=== PATIENT | male | born 1965 | race Caucasian/White ===

== ENCOUNTER 2017-03-05 02:45 | Emergency (ER) | payer OTHER ==
--- NOTE | 2017-03-05 03:50 | ED ORDER SUMMARY ---
..... Patient: CARLOS WADE OrderSheet [facility] VisitID: [id number] [address] [place] [address] 51y, M Registration Date/Time: 03/05/2017 ORDER SHEET Weight: 117.9 kg (stated) Allergies: No Known Drug Allergy GENERAL ORDERS: Shoulder 2V or more Right Urgent (03:20 03/05/2017 Mily Melchor) (3:35 Logan R.N.) Ice (03:20 03/05/2017 Mily Melchor) (3:21 Logan R.N.) MEDICATION ORDERS: Morphine IM 10 mg (HIGH ALERT MEDICATION, NOW) (03:20 03/05/2017 Mily Melchor) (Ack 3:21 CBthor R.N.) (3:28 Logan R.N.) IV FLUIDS: ORDER SHEET NOTES: [Electronically signed by Haydee Escobar R.N. (04:04 03/05/2017)] [Electronically signed by Brennan Lopez Dr. (04:12 03/05/2017)] [Electronically locked/signed by Haydee Escobar R.N. (04:04 03/05/2017)]
--- NOTE | 2017-03-05 03:50 | ED NURSING NOTES ---
Clinical Report - Nurses [facility] [address] [place] [address] 03/05/2017 2:48 Patient: CARLOS WADE TRIAGE Triage time 02:51. Acuity: LEVEL 4. Chief Complaint: RIGHT UPPER EXTREMITY PAIN. --02:58 Haydee Escobar R.N. 02:51 03/05/17. BP: 129/76 taken on the left arm, while lying. HR: 75 (regular and normal rate). RR: 18 (regular and unlabored). O2 saturation: 96% on room air. Temp: 98.5 F (oral). Pain level now: 04/30. --02:58 Haydee Escobar R.N. Weight: 117.9 kg stated. Height/Length: 70 inches Per Patient. BMI: 37.3. --02:53 Haydee Escobar R.N. Medications OxyCODONE HCl Oral (Tablet 15 mg) 1 tablet, as needed. --02:55 Haydee Escobar R.N. Allergies No Known Drug Allergy. --02:54 Haydee Escobar R.N. History Arrived by private vehicle. Historian: patient. Accompanied by family. Primary physician (keyshawn). No injury occurred. This occurred (about 1 years). Provoking / relieving factors: worsened by movement and lying down; relieved by nothing. ( pt states right shoulder pain for 1 year, radiating deep inside, gotten worse over last few days. Denies injury). Treatment LIFE ADVISOR: Applied ice. Took ibuprofen. (muscle rub). PAST MEDICAL HX: Tetanus status: up-to-date. SOCIAL HX: Never smoker. No alcohol use or drug use. ABUSE ASSESSMENT: No report of abuse. SELF HARM ASSESSMENT: A self harm assessment was performed. The patient answered "no" to the question "Have you recently felt down, depressed, or hopeless?", "Have you noticed less interest or pleasure in doing things?", "Do you have thoughts of harming or killing yourself?", "Are you here because you tried to hurt yourself?", "Have you ever tried to hurt yourself before today?", "Have you recently had thoughts about harming or killing others?" and "Do you have any dangerous items in your possession?". FALL RISK ASSESSMENT: Fall risk assessment completed. No fall risk identified. NUTRITIONAL RISK ASSESSMENT: The nutritional risk assessment revealed no deficiencies. FUNCTIONAL ASSESSMENT: Functional assessment: no impairments noted. LEARNING NEEDS ASSESSMENT: The learning needs assessment revealed no barriers. SKIN INTEGRITY ASSESSMENT: Skin integrity risk assessment completed. No skin integrity risk identified. --02:58 Haydee Escobar R.N. PROBLEMS: Degenerative disc disease. Osteoporosis. --02:57 Haydee Escobar R.N. ADDITIONAL SURGERIES: Brain surgery. Facial reconstruction. Laminectomy. Rotator Cuff Surgery. --02:57 Haydee Escobar R.N. Interventions ID band on patient. --02:58 Haydee Escobar R.N. PHYSICAL ASSESSMENT Ambulatory to room. GENERAL / NEURO / PSYCH: Alert. Appears in no acute distress. Appears in pain. EXTREMITIES: Neuro-vascular status intact to the extremity. No upper extremity edema. Right shoulder: tenderness. Limited ROM due to pain (diminished abduction, adduction, flexion, extension and external and internal rotation). SKIN: Skin intact. Skin is warm and dry. --02:59 Haydee Escobar R.N. NURSING PROGRESS NOTES Two patient identifiers checked. Call light placed in reach. Side rails up x 1. Bed placed in lowest position. Brakes of bed on. --02:59 Haydee Escobar R.N. Patient ready for evaluation- chart flagged. --02:59 Haydee Escobar R.N. 03:25 03/05/2017 Morphine (Morphine Sulfate (PF)) IM 10 mg given. Given in the right deltoid. Allergies verified, confirmed 5 rights and sedative warning given to the patient. --03:28 Haydee Escobar R.N. DISPOSITION / DISCHARGE Condition at departure: improved and stable. No learning barriers present. Discharge instructions provided and reviewed with the patient. Patient and polysom tech verbalized understanding. Written instructions provided in Bengali. No medication instructions. The patient was discharged home and accompanied by polysom tech. He left the Emergency Department ambulatory and via private vehicle. [place] driving. --04:04 Haydee Escobar R.N. 03:55 03/05/17. BP: 150/91. HR: 84. RR: 18. O2 saturation: 100% on room air. Temp: deferred. Pain level now: 01/29. --04:04 Haydee Escobar R.N. Departure time: 0355. --04:04 Haydee Escobar R.N. Locked/Released at 03/05/2017 4:04 by Haydee Escobar R.N.
--- NOTE | 2017-03-05 03:50 | ED NURSING NOTES ---
Clinical Report - Nurses [facility] [address] [place] [address] 03/05/2017 2:48 Patient: CARLOS WADE TRIAGE Triage time 02:51. Acuity: LEVEL 4. Chief Complaint: RIGHT UPPER EXTREMITY PAIN. --02:58 Haydee Escobar R.N. 02:51 03/05/17. BP: 129/76 taken on the left arm, while lying. HR: 75 (regular and normal rate). RR: 18 (regular and unlabored). O2 saturation: 96% on room air. Temp: 98.5 F (oral). Pain level now: 04/30. --02:58 Haydee Escobar R.N. Weight: 117.9 kg stated. Height/Length: 70 inches Per Patient. BMI: 37.3. --02:53 Haydee Escobar R.N. Medications OxyCODONE HCl Oral (Tablet 15 mg) 1 tablet, as needed. --02:55 Haydee Escobar R.N. Allergies No Known Drug Allergy. --02:54 Haydee Escobar R.N. History Arrived by private vehicle. Historian: patient. Accompanied by family. Primary physician (keyshawn). No injury occurred. This occurred (about 1 years). Provoking / relieving factors: worsened by movement and lying down; relieved by nothing. ( pt states right shoulder pain for 1 year, radiating deep inside, gotten worse over last few days. Denies injury). Treatment DIRECTOR SEMICONDUCTOR: Applied ice. Took ibuprofen. (muscle rub). PAST MEDICAL HX: Tetanus status: up-to-date. SOCIAL HX: Never smoker. No alcohol use or drug use. ABUSE ASSESSMENT: No report of abuse. SELF HARM ASSESSMENT: A self harm assessment was performed. The patient answered "no" to the question "Have you recently felt down, depressed, or hopeless?", "Have you noticed less interest or pleasure in doing things?", "Do you have thoughts of harming or killing yourself?", "Are you here because you tried to hurt yourself?", "Have you ever tried to hurt yourself before today?", "Have you recently had thoughts about harming or killing others?" and "Do you have any dangerous items in your possession?". FALL RISK ASSESSMENT: Fall risk assessment completed. No fall risk identified. NUTRITIONAL RISK ASSESSMENT: The nutritional risk assessment revealed no deficiencies. FUNCTIONAL ASSESSMENT: Functional assessment: no impairments noted. LEARNING NEEDS ASSESSMENT: The learning needs assessment revealed no barriers. SKIN INTEGRITY ASSESSMENT: Skin integrity risk assessment completed. No skin integrity risk identified. --02:58 Haydee Escobar R.N. PROBLEMS: Degenerative disc disease. Osteoporosis. --02:57 Haydee Escobar R.N. ADDITIONAL SURGERIES: Brain surgery. Facial reconstruction. Laminectomy. Rotator Cuff Surgery. --02:57 Haydee Escobar R.N. Interventions ID band on patient. --02:58 Haydee Escobar R.N. PHYSICAL ASSESSMENT Ambulatory to room. GENERAL / NEURO / PSYCH: Alert. Appears in no acute distress. Appears in pain. EXTREMITIES: Neuro-vascular status intact to the extremity. No upper extremity edema. Right shoulder: tenderness. Limited ROM due to pain (diminished abduction, adduction, flexion, extension and external and internal rotation). SKIN: Skin intact. Skin is warm and dry. --02:59 Haydee Escobar R.N. NURSING PROGRESS NOTES Two patient identifiers checked. Call light placed in reach. Side rails up x 1. Bed placed in lowest position. Brakes of bed on. --02:59 Haydee Escobar R.N. Patient ready for evaluation- chart flagged. --02:59 Haydee Escobar R.N. 03:25 03/05/2017 Morphine (Morphine Sulfate (PF)) IM 10 mg given. Given in the right deltoid. Allergies verified, confirmed 5 rights and sedative warning given to the patient. --03:28 Haydee Escobar R.N. DISPOSITION / DISCHARGE Condition at departure: improved and stable. No learning barriers present. Discharge instructions provided and reviewed with the patient. Patient and public health internship verbalized understanding. Written instructions provided in Sami. No medication instructions. The patient was discharged home and accompanied by public health internship. He left the Emergency Department ambulatory and via private vehicle. Yarn Tw[employer] driving. --04:04 Haydee Escobar R.N. 03:55 03/05/17. BP: 150/91. HR: 84. RR: 18. O2 saturation: 100% on room air. Temp: deferred. Pain level now: 01/29. --04:04 Haydee Escobar R.N. Departure time: 0355. --04:04 Haydee Escobar R.N. Locked/Released at 03/05/2017 4:04 by Haydee Escobar R.N.
--- NOTE | 2017-03-05 03:50 | ED ORDER SUMMARY ---
..... Patient: CARLOS WADE OrderSheet [facility] VisitID: [id number] [address] [place] [address] 51y, M Registration Date/Time: 03/05/2017 ORDER SHEET Weight: 117.9 kg (stated) Allergies: No Known Drug Allergy GENERAL ORDERS: Shoulder 2V or more Right Urgent (03:20 03/05/2017 Mily Melchor) (3:35 Logan R.N.) Ice (03:20 03/05/2017 Mily Melchor) (3:21 Logan R.N.) MEDICATION ORDERS: Morphine IM 10 mg (HIGH ALERT MEDICATION, NOW) (03:20 03/05/2017 Mily Melchor) (Ack 3:21 CBthor R.N.) (3:28 Logan R.N.) IV FLUIDS: ORDER SHEET NOTES: [Electronically signed by Haydee Escobar R.N. (04:04 03/05/2017)] [Electronically signed by Brennan Lopez Dr. (04:12 03/05/2017)] [Electronically locked/signed by Haydee Escobar R.N. (04:04 03/05/2017)]
--- NOTE | 2017-03-05 04:13 | ED CLINICAL REPORT ---
Clinical Report - Physicians/Mid Levels [facility] [address] [place] [address] 03/05/2017 2:48 Patient: CARLOS WADE Time Seen: 0309. Arrived- By private vehicle. Historian- patient. HISTORY OF PRESENT ILLNESS Chief Complaint: Injury to right shoulder. The injury happened past year. Occurred at home. ( unsure how he injured it). Patient is experiencing moderate pain. Patient denies injury to the head or neck. No other injury. ( states he had work done on the other shoulder. reports he can see this doctor in the future.). REVIEW OF SYSTEMS No swelling, tingling, numbness, weakness or suspected foreign body. No skin laceration. All systems otherwise negative, except as recorded above. PAST HISTORY See nurses notes. Medications: OxyCODONE HCl Oral (Tablet 15 mg) 1 tablet, as needed. Allergies: No Known Drug Allergy. SOCIAL HISTORY Never smoker. No alcohol use or drug use. No recent travel. Is a local resident. ADDITIONAL NOTES The nursing notes have been reviewed. PHYSICAL EXAM Vital Signs: 03/05/2017 02:51 BP: 129/76. HR: 75. RR: 18. O2 saturation: 96%. Temp: 98.5 F. Pain level now: 7/10. Blood pressure normal. Oxygen saturation normal. Appearance: Alert. Oriented X3. No acute distress. Head: Head atraumatic. Eyes: Pupils equal, round and reactive to light. Eyes normal inspection. ENT: Ears normal. Nose normal. Pharynx normal. Neck: Normal inspection. Neck supple. C-spine non-tender. (well healed remote midline surgical scar.). CVS: Normal heart rate and rhythm. Heart sounds normal. Pulses normal. Respiratory: No respiratory distress. Breath sounds normal. Chest nontender. Abdomen: No visible injury. Soft and nontender. Bowel sounds normal. Skin: Skin intact. Skin warm and dry. Normal skin color. Normal skin turgor. Extremities: Normal external inspection. Mild soft-tissue tenderness present over the right anterior shoulder. No shoulder deformity. (no dhruv abnormalities. no specific movement worse in regards to pain.). Extremities otherwise negative. Neuro, Vascular and Tendons: Sensation intact. Motor intact. Vascular status intact. Tendon function intact. Neuro: Oriented X 3. No motor deficit. No sensory deficit. LABS, X-RAYS, AND EKG Rt Shoulder X-ray: No fracture. Normal alignment. Soft tissues normal. Joint spaces normal. No air in the soft tissue or foreign body. (dystrophic calcifications. no acute findings. otherwise negative right shoulder.). Technique: good. The X-rays were independently viewed by me and interpreted contemporaneously by me. Prior films were not available for comparison. PROGRESS AND PROCEDURES Course of Care: the patient is a pleasant 51-year-old male presenting for evaluation of right-sided shoulder pain. This is been going on for 1 year. No signs of septic joint. No signs of compartment syndrome. Patient is otherwise neurovascular intact. Patient will be evaluated. patient will be evaluated for any acute osseous abnormalities with radiographs of the right shoulder. Pain medication provided. Workup does not show any acute osseous abnormalities. Patient's repeat examination is improved. Patient states that his pain is much better controlled. I discussed the patient workup here in the emergency department including diagnosis, home care, follow-up, and return precautions. All questions have been answered. The patient expressed understanding of these instructions and was agreeable to them. Disposition: Discharged. Condition: good. CLINICAL IMPRESSION 03/05/2017 02:51 BP: 129/76. HR: 75. RR: 18. O2 saturation: 96%. Temp: 98.5 F. Pain level now: 7/10. Blood pressure normal. Oxygen saturation normal. Acute nontraumatic pain in the left upper extremity (shoulder)(acute). INSTRUCTIONS Warnings: GENERAL WARNINGS: Return or contact your physician immediately if your condition worsens or changes unexpectedly, if not improving as expected, or if other problems arise. Specifically return if pain, vomiting, bleeding, breathing difficulty or fever. Your Current Medications: CONTINUE TAKING THE FOLLOWING MEDICATIONS: OxyCODONE HCl Oral : Tablet 15 mg, 1 tablet, prn. Follow-up: Return to the emergency department as needed. Follow up with your doctor in three days. Reason for referral: recheck today's concerns. Summary of care provided to patient via paper. Screening today revealed the patient's blood pressure to be in the normal range. The patient should follow up with a primary care provider for blood pressure management. Understanding of the discharge instructions verbalized by patient. (Electronically signed by Brennan Lopez Dr. 03/05/2017 4:12)
--- NOTE | 2017-03-05 04:13 | ED DISCHARGE INSTRUCTIONS ---
Patient: CARLOS WADE General Instructions [facility] VisitID: [id number] [address] [place] [address] 51y, M Registration Date/Time: 03/05/2017 03/05/2017 02:51 BP: 129/76. HR: 75. RR: 18. O2 saturation: 96%. Temp: 98.5 F. Pain level now: 7/10. Blood pressure normal. Oxygen saturation normal. Acute nontraumatic pain in the left upper extremity (shoulder)(acute). INSTRUCTIONS Warnings: GENERAL WARNINGS: Return or contact your physician immediately if your condition worsens or changes unexpectedly, if not improving as expected, or if other problems arise. Specifically return if pain, vomiting, bleeding, breathing difficulty or fever. Your Current Medications: CONTINUE TAKING THE FOLLOWING MEDICATIONS: OxyCODONE HCl Oral : Tablet 15 mg, 1 tablet, prn. Follow-up: Return to the emergency department as needed. Follow up with your doctor in three days. Reason for referral: recheck today's concerns. Summary of care provided to patient via paper. Screening today revealed the patient's blood pressure to be in the normal range. The patient should follow up with a primary care provider for blood pressure management. Understanding of the discharge instructions verbalized by patient. ADDITIONAL INFORMATION Pain, Uncertain Cause [Acute] Pain is the bodys way of calling attention to a problem. Pain can be caused by many conditions - some minor, some serious. In your case, we were not able to find the exact cause for your pain. However, at this time there is no sign of any serious or life-threatening illness causing your pain. Sometimes more tests will be needed to determine the cause. Other times, just allowing more time to pass will either make it clear what the problem is, or the pain will go away by itself. Home Care: You may use acetaminophen (Tylenol) or ibuprofen (Motrin, Advil) to control pain, unless another medicine was prescribed. [NOTE: If you have chronic liver or kidney disease or ever had a stomach ulcer or GI bleeding, talk with your doctor before using these medicines.] Follow Up with your doctor or as advised by our staff. Get Prompt Medical Attention if any of the following occur: Changes in the pattern of your pain Appearance of new symptoms Fever of 100.4F (38C) or higher, or as directed by your healthcare provider You have been given the following additional information: Pain, Uncertain Cause (Acute) (Electronically signed by Brennan Lopez Dr. 03/05/2017 4:12)
--- NOTE | 2017-03-05 04:13 | ED MAR SUMMARY ---
..... Medication Administration Record [facility] [address] [place] [address] Patient: CARLOS WADE Visit ID: [id number] 51y, M Weight: 117.9 kg Height/Length: 70 in BMI: 37.3 ALLERGIES: No Known Drug Allergy Given 03:25 03/05/2017 Haydee Escobar R.N. Medication Administered: MORPHINE [IM] (MORPHINE SULFATE (PF)), Dose: 10 mg IM. Medication Ordered: Morphine IM 10 mg (HIGH ALERT MEDICATION, NOW).
--- NOTE | 2017-03-05 04:13 | ED MED RECONCILIATION SUMMARY ---
Patient: CARLOS WADE Medication Reconciliation Report [facility] VisitID: [id number] [address] [place] [address] 51y, M Registration Date/Time: 03/05/2017 Weight: 117.9 kg Height/Length: 70 in. BMI: 37.3 ALLERGIES: No Known Drug Allergy The patient's Home Medications are listed below: CONTINUE TAKING THE FOLLOWING MEDICATIONS: OxyCODONE HCl Oral (15 mg) 1 tablet The source(s) of the original Home Medication information: Not obtained. The following Medications were given to the patient in the Emergency Department: Morphine [IM] IM 10 mg, administered: 03/05/2017 3:25:00 AM The following Medications were prescribed to the patient: None.
--- NOTE | 2017-03-05 04:13 | ED MAR SUMMARY ---
..... Medication Administration Record [facility] [address] [place] [address] Patient: CARLOS WADE Visit ID: [id number] 51y, M Weight: 117.9 kg Height/Length: 70 in BMI: 37.3 ALLERGIES: No Known Drug Allergy Given 03:25 03/05/2017 Haydee Escobar R.N. Medication Administered: MORPHINE [IM] (MORPHINE SULFATE (PF)), Dose: 10 mg IM. Medication Ordered: Morphine IM 10 mg (HIGH ALERT MEDICATION, NOW).
--- NOTE | 2017-03-05 04:13 | ED MED RECONCILIATION SUMMARY ---
Patient: CARLOS WADE Medication Reconciliation Report [facility] VisitID: [id number] [address] [place] [address] 51y, M Registration Date/Time: 03/05/2017 Weight: 117.9 kg Height/Length: 70 in. BMI: 37.3 ALLERGIES: No Known Drug Allergy The patient's Home Medications are listed below: CONTINUE TAKING THE FOLLOWING MEDICATIONS: OxyCODONE HCl Oral (15 mg) 1 tablet The source(s) of the original Home Medication information: Not obtained. The following Medications were given to the patient in the Emergency Department: Morphine [IM] IM 10 mg, administered: 03/05/2017 3:25:00 AM The following Medications were prescribed to the patient: None.
--- NOTE | 2017-03-05 05:43 | DIAGNOSTIC IMAGING REPORT ---
PROCEDURE: XR SHOULDER 2 OR MORE VW-RIGHT INDICATION: TRAUMA/INJURY TECHNIQUE: Three views. COMPARISON: None. FINDINGS: There is no fracture. Mild AC and glenohumeral joint degenerative changes with widening. This may 740 of the proximal humerus laterally suggestive of an exostosis. Extensive calcific tendinosis. IMPRESSION: 1. No acute changes 2. Widening of the AC joint suggestive of grade 1 separation 3. Mild AC and glenohumeral joint degenerative changes 4. Calcific tendonitis
== END 2017-03-05 03:55 | disposition home or self-care (01) ==
LOC: ED SRH 02:45
DX: M25.511 Pain in right shoulder (principal)

== ENCOUNTER 2017-04-14 23:08 | Emergency (ER) | payer OTHER ==
--- NOTE | 2017-04-15 01:30 | ED NURSING NOTES ---
Clinical Report - Nurses [facility] [place] [address] 04/14/2017 23:08 Patient: CARLOS WADE TRIAGE Triage time 23:18. Acuity: LEVEL 4. Chief Complaint: INJURY TO LEFT SHOULDER. INJURY TO THE LEFT ARM. 23:26. Alert. GABRIELLE COMA SCORE: [place] Coma Scale: 15- eyes open spontaneously (4); best verbal response- oriented x 4 (5); best motor response- obeys commands (6). --23:26 Ethan Wynn R.N. 23:18 04/14/17. BP: 125/82. HR: 88. RR: 16. O2 saturation: 95%. Temp: 98 F (oral). Pain level now: 810. --23:26 Ethan Wynn R.N. Weight: 117.9 kg stated. Height/Length: 70 inches Per Patient. BMI: 37.3. --23:25 Ethan Wynn R.N. Medications OxyCODONE HCl Oral (Tablet 15 mg) 1 tablet, as needed. --23:24 Ethan Wynn R.N. Medication/allergy information source: the patient. --23:26 Ethan Wynn R.N. Allergies No Known Drug Allergy. --23:24 Ethan Wynn R.N. History Arrived by private vehicle. Historian: patient. Primary physician (Jayleen). This occurred (3 days ago). Occurred at work. ( Grabbed ladder as it was sliding, having left arm, left shoulder and chest pain thinks he tore a muscle). Treatment SPRING BENDER: Took ibuprofen. PAST MEDICAL HX: Tetanus status: up-to-date. Immunizations: up-to-date. SOCIAL HX: Never smoker. No alcohol use or drug use. No infectious disease exposure. ABUSE ASSESSMENT: No report of abuse. FALL RISK ASSESSMENT: Fall risk assessment completed. No fall risk identified. NUTRITIONAL RISK ASSESSMENT: The nutritional risk assessment revealed no deficiencies. FUNCTIONAL ASSESSMENT: Functional assessment: no impairments noted. LEARNING NEEDS ASSESSMENT: The learning needs assessment revealed no barriers. SKIN INTEGRITY ASSESSMENT: Skin integrity risk assessment completed. No skin integrity risk identified. --: Ethan Wynn R.N. PROBLEMS: Degenerative disc disease. Osteoporosis. --23:24 Ethan Wynn R.N. ADDITIONAL SURGERIES: Brain surgery. Facial reconstruction. Laminectomy. Rotator Cuff Surgery. --23:24 Ethan Wynn R.N. Hip Surgery. Knee Surgery. --23:25 Ethan Wynn R.N. Interventions ID band on patient. To treatment room. --23: Ethan Wynn R.N. PHYSICAL ASSESSMENT 23:27. Ambulatory to room. Patient gowned. GENERAL / NEURO / PSYCH: Oriented X 4. Alert. EXTREMITIES: Neuro-vascular status intact to the extremity. SKIN: Skin intact. Skin is warm and dry. --: Ethan Wynn R.N. NURSING PROGRESS NOTES Two patient identifiers checked. Call light placed in reach. Bed placed in lowest position. Brakes of bed on. Patient ready for evaluation- chart flagged. --:27 Ethan Wynn R.N. 01:00 04/15/2017 Dilaudid (HYDROmorphone HCl PF) IM 2 mg given. Given in the left ventral gluteus. Allergies verified, confirmed 5 rights and sedative warning given to the patient and patient's welt rander. --01:03 Ethan Wynn R.N. 01:01 04/15/2017 Toradol (Ketorolac Tromethamine) IM 60 mg given. Given in the right ventral gluteus. Allergies verified and confirmed 5 rights. --01:04 Ethan Wynn R.N. 01:04 Portable x-ray right pinky finger. --01:04 Ethan Wynn R.N. 01:34. Sling applied to left arm by metal technician; distal pulses intact, sensation intact and motor function within normal limits. --01:43 Ethan Wynn R.N. 01:39. The patient is calm and resting quietly. GENERAL / NEURO / PSYCH: Alert. Oriented X 4. RESPIRATORY: No respiratory distress. EXTREMITIES: Neuro-vascular status intact to the extremity. SKIN: Skin is warm and dry. --01:42 Ethan Wynn R.N. DISPOSITION / DISCHARGE Departure time: 01:42. Condition at departure: improved and stable. No learning barriers present. Discharge instructions provided and reviewed with the patient. Patient verbalized understanding. Written instructions provided in Slovenian. The patient was discharged home and accompanied by welt rander. He left the Emergency Department ambulatory and via private vehicle. Machine Strap Buckler driving. --01:42 Ethan Wynn R.N. 01:38 04/15/17. BP: 146/87. HR: 72. RR: 16. O2 saturation: 98%. Pain level now: 02/28. --01:42 Ethan Wynn R.N. Locked/Released at 04/15/2017 1:43 by Ethan Wynn R.N.
--- NOTE | 2017-04-15 01:30 | ED NURSING NOTES ---
Clinical Report - Nurses [facility] [place] [address] 04/14/2017 23:08 Patient: CARLOS WADE TRIAGE Triage time 23:18. Acuity: LEVEL 4. Chief Complaint: INJURY TO LEFT SHOULDER. INJURY TO THE LEFT ARM. 23:26. Alert. GABRIELLE COMA SCORE: [place] Coma Scale: 15- eyes open spontaneously (4); best verbal response- oriented x 4 (5); best motor response- obeys commands (6). --23:26 Ethan Wynn R.N. 23:18 04/14/17. BP: 125/82. HR: 88. RR: 16. O2 saturation: 95%. Temp: 98 F (oral). Pain level now: 810. --23:26 Ethan Wynn R.N. Weight: 117.9 kg stated. Height/Length: 70 inches Per Patient. BMI: 37.3. --23:25 Ethan Wynn R.N. Medications OxyCODONE HCl Oral (Tablet 15 mg) 1 tablet, as needed. --23:24 Ethan Wynn R.N. Medication/allergy information source: the patient. --23:26 Ethan Wynn R.N. Allergies No Known Drug Allergy. --23:24 Ethan Wynn R.N. History Arrived by private vehicle. Historian: patient. Primary physician (Jayleen). This occurred (3 days ago). Occurred at work. ( Grabbed ladder as it was sliding, having left arm, left shoulder and chest pain thinks he tore a muscle). 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 PAST MEDICAL HX: Tetanus status: up-to-date. Immunizations: up-to-date. SOCIAL HX: Never smoker. No alcohol use or drug use. No infectious disease exposure. ABUSE ASSESSMENT: No report of abuse. FALL RISK ASSESSMENT: Fall risk assessment completed. No fall risk identified. NUTRITIONAL RISK ASSESSMENT: The nutritional risk assessment revealed no deficiencies. FUNCTIONAL ASSESSMENT: Functional assessment: no impairments noted. LEARNING NEEDS ASSESSMENT: The learning needs assessment revealed no barriers. SKIN INTEGRITY ASSESSMENT: Skin integrity risk assessment completed. No skin integrity risk identified. --: Ethan Wynn R.N. PROBLEMS: Degenerative disc disease. Osteoporosis. --23:24 Ethan Wynn R.N. ADDITIONAL SURGERIES: Brain surgery. Facial reconstruction. Laminectomy. Rotator Cuff Surgery. --23:24 Ethan Wynn R.N. Hip Surgery. Knee Surgery. --23:25 Ethan Wynn R.N. Interventions ID band on patient. To treatment room. --23: Ethan Wynn R.N. PHYSICAL ASSESSMENT 23:27. Ambulatory to room. Patient gowned. GENERAL / NEURO / PSYCH: Oriented X 4. Alert. EXTREMITIES: Neuro-vascular status intact to the extremity. SKIN: Skin intact. Skin is warm and dry. --: Ethan Wynn R.N. NURSING PROGRESS NOTES Two patient identifiers checked. Call light placed in reach. Bed placed in lowest position. Brakes of bed on. Patient ready for evaluation- chart flagged. --:27 Ethan Wynn R.N. 01:00 04/15/2017 Dilaudid (HYDROmorphone HCl PF) IM 2 mg given. Given in the left ventral gluteus. Allergies verified, confirmed 5 rights and sedative warning given to the patient and patient's veneer stapler. --01:03 Ethan Wynn R.N. 01:01 04/15/2017 Toradol (Ketorolac Tromethamine) IM 60 mg given. Given in the right ventral gluteus. Allergies verified and confirmed 5 rights. --01:04 Ethan Wynn R.N. 01:04 Portable x-ray right pinky finger. --01:04 Ethan Wynn R.N. 01:34. Sling applied to left arm by optoelectronic technician; distal pulses intact, sensation intact and motor function within normal limits. --01:43 Ethan Wynn R.N. 01:39. The patient is calm and resting quietly. GENERAL / NEURO / PSYCH: Alert. Oriented X 4. RESPIRATORY: No respiratory distress. EXTREMITIES: Neuro-vascular status intact to the extremity. SKIN: Skin is warm and dry. --01:42 Ethan Wynn R.N. DISPOSITION / DISCHARGE Departure time: 01:42. Condition at departure: improved and stable. No learning barriers present. Discharge instructions provided and reviewed with the patient. Patient verbalized understanding. Written instructions provided in Danish. The patient was discharged home and accompanied by veneer stapler. He left the Emergency Department ambulatory and via private vehicle. Circle Beveler driving. --01:42 Ethan Wynn R.N. 01:38 04/15/17. BP: 146/87. HR: 72. RR: 16. O2 saturation: 98%. Pain level now: 02/28. --01:42 Ethan Wynn R.N. Locked/Released at 04/15/2017 1:43 by Ethan Wynn R.N.
--- NOTE | 2017-04-15 01:30 | ED CLINICAL REPORT ---
Clinical Report - Physicians/Mid Levels [facility] [address] [place] [address] 04/14/2017 23:08 Patient: CARLOS WADE Time Seen: 00:34 Apr 15 2017. Arrived- By private vehicle. Historian- patient. CPT: ER phys charges level 4 (#136092). HISTORY OF PRESENT ILLNESS Chief Complaint: Injury to the left arm and the left shoulder and Chief Complaint- Here for pain control as he cannot sleep. Is on pain program and has been using his usual medications but with no frelief. 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 ( This occurred (3 days ago). Occurred at work. ( Grabbed ladder as it was sliding, having left arm, left shoulder and chest pain thinks he tore a muscle).). Patient is experiencing moderate pain. No other injury. REVIEW OF SYSTEMS The patient has had swelling. No tingling, numbness, weakness, suspected foreign body or skin laceration. Also hurt right small finger. Has been taking usual pain medication from pain clinic but pain is still too severe for sleep at night. All systems otherwise negative, except as recorded above. PAST HISTORY Left shoulder surgery , Dr Polo in [place]. Pectoralis and biceps tendon tears. ADDITIONAL NOTES The nursing notes have been reviewed. PHYSICAL EXAM Vital Signs: 04/14/2017 23:18 BP: 125/82. HR: 88. RR: 16. O2 saturation: 95%. Temp: 98 F. Pain level now: 8/10. Appearance: Alert. Appears to be in pain. Patient in moderate distress. Head: Head atraumatic. Eyes: Eyes normal inspection. ENT: Pharynx normal. Neck: Normal inspection. Neck supple. C-spine non-tender. CVS: Normal heart rate and rhythm. Respiratory: No respiratory distress. Chest nontender. Abdomen: No visible injury. Soft and nontender. Back: Normal inspection. No tenderness. Skin: Skin intact. Normal skin color. Extremities: Left shoulder: moderate tenderness located in the anterior aspect of the shoulder. Limited ROM due to pain. Neurovascular intact distally. (tender over the insertion of the left pectoralis and left biceps with deformity of the biceps consistent with rupture.). No joint effusion. Right little finger: moderate tenderness, mild swelling and small ecchymosis of the dorsal aspect and PIP joint; limited movement. Neurovascular intact distally. (finger gets stuck in flexed position.). No abrasion or deformity. No subungual hematoma or amputation present. Extremities otherwise negative. Neuro, Vascular and Tendons: Vascular status intact. Sensation intact. Motor intact. Neuro: Oriented X 3. No motor deficit. No sensory deficit. LABS, X-RAYS, AND EKG X-Rays: Right digit(s) negative. PROGRESS AND PROCEDURES Course of Care: Dilaudid 2 mg IM Toradol 60 mg IM Patient is stable. Symptoms much better. Patient/family counseled. Disposition: Discharged. Condition: stable and improved. CLINICAL IMPRESSION Pectoralis and biceps tear on the left. Right small finger sprain. INSTRUCTIONS Wear simple sling until better. Flakito tape fingers until better. Limit use of your left hand until released. Warnings: SEDATIVE MEDICATION: You were given sedative medication during your visit. Do not drive or operate dangerous machinery. GENERAL WARNINGS: Return or contact your physician immediately if your condition worsens or changes unexpectedly, if not improving as expected, or if other problems arise. Your Current Medications: CONTINUE TAKING THE FOLLOWING MEDICATIONS: OxyCODONE HCl Oral : Tablet 15 mg, 1 tablet, prn. Follow-up: Follow up with an orthopedic surgeon in three days. Call for the next available appointment. Understanding of the discharge instructions verbalized by patient and family. (Electronically signed by Kuldeep Ball MD 04/15/2017 10:50)
--- NOTE | 2017-04-15 01:30 | ED CLINICAL REPORT ---
Clinical Report - Physicians/Mid Levels [facility] [address] [place] [address] 04/14/2017 23:08 Patient: CARLOS WADE Time Seen: 00:34 Apr 15 2017. Arrived- By private vehicle. Historian- patient. CPT: ER phys charges level 4 (#[id number]). HISTORY OF PRESENT ILLNESS Chief Complaint: Injury to the left arm and the left shoulder and Chief Complaint- Here for pain control as he cannot sleep. Is on pain program and has been using his usual medications but with no frelief. 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 ( This occurred (3 days ago). Occurred at work. ( Grabbed ladder as it was sliding, having left arm, left shoulder and chest pain thinks he tore a muscle).). Patient is experiencing moderate pain. No other injury. REVIEW OF SYSTEMS The patient has had swelling. No tingling, numbness, weakness, suspected foreign body or skin laceration. Also hurt right small finger. Has been taking usual pain medication from pain clinic but pain is still too severe for sleep at night. All systems otherwise negative, except as recorded above. PAST HISTORY Left shoulder surgery , Dr Polo in [place]. Pectoralis and biceps tendon tears. ADDITIONAL NOTES The nursing notes have been reviewed. PHYSICAL EXAM Vital Signs: 04/14/2017 23:18 BP: 125/82. HR: 88. RR: 16. O2 saturation: 95%. Temp: 98 F. Pain level now: 8/10. Appearance: Alert. Appears to be in pain. Patient in moderate distress. Head: Head atraumatic. Eyes: Eyes normal inspection. ENT: Pharynx normal. Neck: Normal inspection. Neck supple. C-spine non-tender. CVS: Normal heart rate and rhythm. Respiratory: No respiratory distress. Chest nontender. Abdomen: No visible injury. Soft and nontender. Back: Normal inspection. No tenderness. Skin: Skin intact. Normal skin color. Extremities: Left shoulder: moderate tenderness located in the anterior aspect of the shoulder. Limited ROM due to pain. Neurovascular intact distally. (tender over the insertion of the left pectoralis and left biceps with deformity of the biceps consistent with rupture.). No joint effusion. Right little finger: moderate tenderness, mild swelling and small ecchymosis of the dorsal aspect and PIP joint; limited movement. Neurovascular intact distally. (finger gets stuck in flexed position.). No abrasion or deformity. No subungual hematoma or amputation present. Extremities otherwise negative. Neuro, Vascular and Tendons: Vascular status intact. Sensation intact. Motor intact. Neuro: Oriented X 3. No motor deficit. No sensory deficit. LABS, X-RAYS, AND EKG X-Rays: Right digit(s) negative. PROGRESS AND PROCEDURES Course of Care: Dilaudid 2 mg IM Toradol 60 mg IM Patient is stable. Symptoms much better. Patient/family counseled. Disposition: Discharged. Condition: stable and improved. CLINICAL IMPRESSION Pectoralis and biceps tear on the left. Right small finger sprain. INSTRUCTIONS Wear simple sling until better. Flakito tape fingers until better. Limit use of your left hand until released. Warnings: SEDATIVE MEDICATION: You were given sedative medication during your visit. Do not drive or operate dangerous machinery. GENERAL WARNINGS: Return or contact your physician immediately if your condition worsens or changes unexpectedly, if not improving as expected, or if other problems arise. Your Current Medications: CONTINUE TAKING THE FOLLOWING MEDICATIONS: OxyCODONE HCl Oral : Tablet 15 mg, 1 tablet, prn. Follow-up: Follow up with an orthopedic surgeon in three days. Call for the next available appointment. Understanding of the discharge instructions verbalized by patient and family. (Electronically signed by Kuldeep Ball MD 04/15/2017 10:50)
--- NOTE | 2017-04-15 01:30 | ED ORDER SUMMARY ---
..... Patient: CARLOS WADE OrderSheet [facility] VisitID: [id number] [address] [place] [address] 51y, M Registration Date/Time: 04/14/2017 ORDER SHEET Weight: 117.9 kg (stated) Allergies: No Known Drug Allergy GENERAL ORDERS: Finger Left (5) Urgent (00:54 04/15/2017 Jose Miguel PIERRE) (Cancelled: Other1:06 JQuivey R.N.) Finger Right (pinky) Urgent (01:04/15/2017 JQuivey R.N. verbal order read back to Jose Miguel PIERRE) (Ack 1:10 Jeferson SOLORZANO Multimedia Artist) (1:18 Jenniefr) Sling - arm (01:29 04/15/2017 Jose Miguel PIERRE) (Ack 1:35 JQuivey R.N.) (1:43 JQuivey R.N.) MEDICATION ORDERS: Oxycodone-APAP PO 10/650 mg (NOW) (00:50 04/15/2017 Jose Miguel PIERRE) (Cancelled: Other0:53 Jose Miguel PIERRE) Dilaudid IM 2 mg (NOW) (00:53 04/15/2017 Jose Miguel PIERRE) (Ack 0:55 JQuivey R.N.) (1:03 JQuivey R.N.) Toradol IM 60 mg (NOW) (00:53 04/15/2017 Jose Miguel PIERRE) (Ack 0:55 JQuivey R.N.) (1:04 JQuivey R.N.) IV FLUIDS: ORDER SHEET NOTES: [Electronically signed by Ethan Wynn R.N. (:04/15/2017)] [Electronically signed by Kuldeep Ball MD (10:50 04/15/2017)] [Electronically locked/signed by Ethan Wynn R.N. (04/15/2017)]
--- NOTE | 2017-04-15 01:30 | ED ORDER SUMMARY ---
..... Patient: CARLOS WADE OrderSheet [facility] VisitID: [id number] [address] [place] [address] 51y, M Registration Date/Time: 04/14/2017 ORDER SHEET Weight: 117.9 kg (stated) Allergies: No Known Drug Allergy GENERAL ORDERS: Finger Left (5) Urgent (00:54 04/15/2017 Jose Miguel PIERRE) (Cancelled: Other1:06 JQuivey R.N.) Finger Right (pinky) Urgent (01:04/15/2017 JQuivey R.N. verbal order read back to Jose Miguel PIERRE) (Ack 1:10 Jeferson SOLORZANO International Specialist) (1:18 Jennifer) Sling - arm (01:29 04/15/2017 Jose Miguel PIERRE) (Ack 1:35 JQuivey R.N.) (1:43 JQuivey R.N.) MEDICATION ORDERS: Oxycodone-APAP PO 10/650 mg (NOW) (00:50 04/15/2017 Jose Miguel PIERRE) (Cancelled: Other0:53 Jose Miguel PIERRE) Dilaudid IM 2 mg (NOW) (00:53 04/15/2017 Jose Miguel PIERRE) (Ack 0:55 JQuivey R.N.) (1:03 JQuivey R.N.) Toradol IM 60 mg (NOW) (00:53 04/15/2017 Jose Miguel PIERRE) (Ack 0:55 JQuivey R.N.) (1:04 JQuivey R.N.) IV FLUIDS: ORDER SHEET NOTES: [Electronically signed by Ethan Wynn R.N. (:04/15/2017)] [Electronically signed by Kuldeep Ball MD (10:50 04/15/2017)] [Electronically locked/signed by Ethan Wynn R.N. (04/15/2017)]
--- NOTE | 2017-04-15 08:31 | DIAGNOSTIC IMAGING REPORT ---
PROCEDURE: XR FINGER - RIGHT INDICATION: TRAUMA/INJURY TECHNIQUE: A P hand and two views of the right fifth digit. COMPARISON: None. FINDINGS: Normal mineralization. No acute fractures. Irregularity of the third phalanx tuft, and adjacent calcification. Deformity of remote, healed fifth metacarpal neck fracture. Normal osseous alignment. No suspicious soft-tissue calcification or radiodense foreign bodies. IMPRESSION: 1. Intact hand and fifth digit. 2. Third distal phalanx irregularity, probably remote trauma. 3. Remote fifth metacarpal fracture.
--- NOTE | 2017-04-15 10:51 | ED DISCHARGE INSTRUCTIONS ---
Patient: CARLOS WADE General Instructions [facility] VisitID: [id number] [address] [place] [address] 51y, M Registration Date/Time: 04/14/2017 Pectoralis and biceps tear on the left. Right small finger sprain. INSTRUCTIONS Wear simple sling until better. Flakito tape fingers until better. Limit use of your left hand until released. Warnings: SEDATIVE MEDICATION: You were given sedative medication during your visit. Do not drive or operate dangerous machinery. GENERAL WARNINGS: Return or contact your physician immediately if your condition worsens or changes unexpectedly, if not improving as expected, or if other problems arise. Your Current Medications: CONTINUE TAKING THE FOLLOWING MEDICATIONS: OxyCODONE HCl Oral : Tablet 15 mg, 1 tablet, prn. Follow-up: Follow up with an orthopedic surgeon in three days. Call for the next available appointment. Understanding of the discharge instructions verbalized by patient and family. ADDITIONAL INFORMATION Sling A sling is designed to support your arm in a position of rest. It is used for injuries of the hand, forearm, upper arm, and shoulder. A shoulder that is immobilized too long can become stiff and lose range of motion. Follow up with your doctor as advised and do not use the sling longer than directed. Home Use: Leave the sling in place as long as directed by your doctor. Unless told otherwise, you may remove it when bathing, dressing, and when you go to sleep. The sling is adjustable. If it becomes loose, adjust it so that your forearm is horizontal (level with the ground). Your hand should be level with the elbow. You have been given the following additional information: Sling Limit use of your left hand until released. (Electronically signed by Kuldeep Ball MD 04/15/2017 10:50)
--- NOTE | 2017-04-15 10:51 | ED MAR SUMMARY ---
..... Medication Administration Record [facility] [address] [place] [address] Patient: CARLOS WADE Visit ID: [id number] 51y, M Weight: 117.9 kg Height/Length: 70 in BMI: 37.3 ALLERGIES: No Known Drug Allergy Given 01:00 04/15/2017 Ethan Wynn, R.N. Medication Administered: DILAUDID [IM] (HYDROMORPHONE HCL PF), Dose: 2 mg IM. Medication Ordered: Dilaudid IM 2 mg (NOW). Given 01:01 04/15/2017 Ethan Wynn, R.N. Medication Administered: TORADOL [IM] (KETOROLAC TROMETHAMINE), Dose: 60 mg IM. Medication Ordered: Toradol IM 60 mg (NOW).
--- NOTE | 2017-04-15 10:51 | ED MED RECONCILIATION SUMMARY ---
Patient: CARLOS WADE Medication Reconciliation Report [facility] VisitID: [id number] [address] [place] [address] 51y, M Registration Date/Time: 04/14/2017 Weight: 117.9 kg Height/Length: 70 in. BMI: 37.3 ALLERGIES: No Known Drug Allergy The patient's Home Medications are listed below: CONTINUE TAKING THE FOLLOWING MEDICATIONS: OxyCODONE HCl Oral (15 mg) 1 tablet The source(s) of the original Home Medication information: patient The following Medications were given to the patient in the Emergency Department: Dilaudid [IM] IM 2 mg, administered: 04/15/2017 1:00:00 AM Toradol [IM] IM 60 mg, administered: 04/15/2017 1:01:00 AM The following Medications were prescribed to the patient: None.
--- NOTE | 2017-04-15 10:51 | ED MED RECONCILIATION SUMMARY ---
Patient: CARLOS WADE Medication Reconciliation Report [facility] VisitID: [id number] [address] [place] [address] 51y, M Registration Date/Time: 04/14/2017 Weight: 117.9 kg Height/Length: 70 in. BMI: 37.3 ALLERGIES: No Known Drug Allergy The patient's Home Medications are listed below: CONTINUE TAKING THE FOLLOWING MEDICATIONS: OxyCODONE HCl Oral (15 mg) 1 tablet The source(s) of the original Home Medication information: patient The following Medications were given to the patient in the Emergency Department: Dilaudid [IM] IM 2 mg, administered: 04/15/2017 1:00:00 AM Toradol [IM] IM 60 mg, administered: 04/15/2017 1:01:00 AM The following Medications were prescribed to the patient: None.
--- NOTE | 2017-04-15 10:51 | ED MAR SUMMARY ---
..... Medication Administration Record [facility] [address] [place] [address] Patient: CARLOS WADE Visit ID: [id number] 51y, M Weight: 117.9 kg Height/Length: 70 in BMI: 37.3 ALLERGIES: No Known Drug Allergy Given 01:00 04/15/2017 Ethan Wynn, R.N. Medication Administered: DILAUDID [IM] (HYDROMORPHONE HCL PF), Dose: 2 mg IM. Medication Ordered: Dilaudid IM 2 mg (NOW). Given 01:01 04/15/2017 Ethan Wynn, R.N. Medication Administered: TORADOL [IM] (KETOROLAC TROMETHAMINE), Dose: 60 mg IM. Medication Ordered: Toradol IM 60 mg (NOW).
--- NOTE | 2017-04-15 10:51 | ED DISCHARGE INSTRUCTIONS ---
Patient: CARLOS WADE General Instructions [facility] VisitID: [id number] [address] [place] [address] 51y, M Registration Date/Time: 04/14/2017 Pectoralis and biceps tear on the left. Right small finger sprain. INSTRUCTIONS Wear simple sling until better. [place] tape fingers until better. Limit use of your left hand until released. Warnings: SEDATIVE MEDICATION: You were given sedative medication during your visit. Do not drive or operate dangerous machinery. GENERAL WARNINGS: Return or contact your physician immediately if your condition worsens or changes unexpectedly, if not improving as expected, or if other problems arise. Your Current Medications: CONTINUE TAKING THE FOLLOWING MEDICATIONS: OxyCODONE HCl Oral : Tablet 15 mg, 1 tablet, prn. Follow-up: Follow up with an orthopedic surgeon in three days. Call for the next available appointment. Understanding of the discharge instructions verbalized by patient and family. ADDITIONAL INFORMATION Sling A sling is designed to support your arm in a position of rest. It is used for injuries of the hand, forearm, upper arm, and shoulder. A shoulder that is immobilized too long can become stiff and lose range of motion. Follow up with your doctor as advised and do not use the sling longer than directed. Home Use: Leave the sling in place as long as directed by your doctor. Unless told otherwise, you may remove it when bathing, dressing, and when you go to sleep. The sling is adjustable. If it becomes loose, adjust it so that your forearm is horizontal (level with the ground). Your hand should be level with the elbow. You have been given the following additional information: Sling Limit use of your left hand until released. (Electronically signed by Kuldeep Ball MD 04/15/2017 10:50)
== END 2017-04-15 01:42 | disposition home or self-care (01) ==
LOC: ED SRH 23:08
DX: S46.212A Strain of muscle, fascia and tendon of other parts of biceps, left arm, initial encounter (principal); S29.011A Strain of muscle and tendon of front wall of thorax, initial encounter; S63.616A Unspecified sprain of right little finger, initial encounter; X58.XXXA Exposure to other specified factors, initial encounter; Y93.89 Activity, other specified; Y92.89 Other specified places as the place of occurrence of the external cause; Y99.0 Civilian activity done for income or pay